=== PATIENT | male | born 2000 | race Caucasian/White ===

== ENCOUNTER 2020-08-31 18:48 | Emergency (ER) | payer BC ==
--- NOTE | 2020-08-31 19:11 | EDM.PDOC ---
ED HPI GENERAL MEDICAL PROBLEM - General Chief Complaint: Gastrointestinal Problem Stated Complaint: CONSTIPATION Time Seen by Provider: 08/31/20 19:04 Source of Information: Reports: Patient History Limitations: Reports: No Limitations - History of Present Illness INITIAL COMMENTS - FREE TEXT/NARRATIVE: 20-year-old male presents to the ED with concerns of not having a bowel movement for the last 6 days. He states he is in no discomfort. He has no rectal pressure discomfort no rectal pain. He has not taken any medications that would have slow down his bowel [id number] or prescribed by a doctor. Denies any problems with hemorrhoids or rectal bleeding. He does have a small umbilical hernia which she was somewhat concerned about may be causing some of his problem s. He states he can eat and does not have much in the way of abdominal cramping pain. There is been no nausea or vomiting. No fever or chills. No other signs of illness. Onset: Gradual Onset Date: 08/26/20 (Ports no good bowel movement for 6 days.) Duration: Day(s):, Constant Location: Reports: Abdomen (Mild diffuse abdominal discomfort. No severe cramps. Reports no bowel movement for 6 days.) Quality: Reports: Other Severity: Mild (Occasional mild cramping abdominal pain) Improves with: Reports: None Worsens with: Reports: None Context: Denies: Activity, Exercise, Lifting, Sick Contact, Trauma, Other Associated Symptoms: Denies: No Other Symptoms, Confusion, Chest Pain, Cough, cough w sputum, Diaphoresis, Fever/Chills, Headaches, Loss of Appetite, Malaise, Nausea/Vomiting, Rash, Seizure, Shortness of Breath, Syncope, Weakness Treatments INTERVENTIONAL PHYSIATRIST: Reports: Other (see below) - Related Data Allergies Allergy/AdvReac Type Severity Reaction Status Date / Time No Known Allergies Allergy Verified 08/31/20 19:01 Home Meds: Home Meds . [No Known Home Meds] 08/31/20 [History] Past Medical History - Past Health History Medical/Surgical History: Denies Medical/Surgical History Gastrointestinal History: Reports: Other (See Below) Other Gastrointestinal History: umbilicial hernia Social & Family History - Family History Family Medical History: No Pertinent Family History ED ROS GENERAL - Review of Systems Review Of Systems: See Below Constitutional: Reports: No Symptoms HEENT: Reports: No Symptoms Respiratory: Reports: No Symptoms Cardiovascular: Reports: No Symptoms Endocrine: Reports: No Symptoms GI/Abdominal: Reports: Constipation, Other (Does have a small infraumbilical hernia that does not bother him and he discovered about 6 weeks ago.) : Reports: No Symptoms Musculoskeletal: Reports: No Symptoms Skin: Reports: No Symptoms Neurological: Reports: No Symptoms Psychiatric: Reports: No Symptoms Hematologic/Lymphatic: Reports: No Symptoms Immunologic: Reports: No Symptoms ED EXAM, GI/ABD - Physical Exam Exam: See Below Exam Limited By: No Limitations General Appearance: Alert, WD/WN, No Apparent Distress, Other (Temperature is 36.7. Heart rate 106 in sinus respiratory is 14 with O2 sats of 100% room air BP 1 3387) Eyes: Bilateral: Normal Appearance Throat/Mouth: Normal Inspection, Normal Lips, Normal Teeth, Normal Oropharynx, Other (Tongue is moist.) Head: Atraumatic, Normocephalic Neck: Normal Inspection, Supple, Non-Tender, Full Range of Motion. No: Lymphadenopathy (L), Lymphadenopathy (R), Thyromegaly Respiratory/Chest: No Respiratory Distress, Lungs Clear, Normal Breath Sounds, No Accessory Muscle Use, Chest Non-Tender Cardiovascular: Normal Peripheral Pulses, Regular Rate, Rhythm, No Edema, No Gallop, No Murmur, No Rub GI/Abdominal Exam: Normal Bowel Sounds, Soft, Non-Tender, No Mass, Other (Does have a small umbilical hernia inferior portion which is easily reducible and nontender) Back Exam: Normal Inspection, Full Range of Motion. No: CVA Tenderness (L), CVA Tenderness (R) Extremities: Normal Inspection, Normal Range of Motion, Non-Tender, No Pedal Edema Neurological: Alert, Oriented, CN II-XII Intact, Normal Cognition Psychiatric: Normal Affect, Normal Mood Skin Exam: Warm, Dry, Intact, No Rash Course - Vital Signs Last Recorded V/S: Last Vital Signs Temp 36.7 C 08/31/20 18:58 Pulse 106 H 08/31/20 18:58 Resp 14 08/31/20 18:58 BP 133/87 08/31/20 18:58 Pulse Ox 100 08/31/20 18:58 - Orders/Labs/Meds Orders: Active Orders 24 hr Category Date Time Status Abdomen 1V Flat [CR] Stat Exams 08/31/20 19:05 Taken Meds: Medications Discontinued Medications Generic Name Dose Route Start Last Admin Trade Name Devaughn PRN Reason Stop Dose Admin Magnesium Citrate 296 ml 08/31/20 19:42 Citrate Of Magnesia PO 08/31/20 19:43 ONETIME ONE - Radiology Interpretation Free Text/Narrative:: 20-year-old male presents to the ED comes with concerns of no bowel movement for the last 6 days. In spite of this he has a good appetite he denies any abdominal pain or cramping on a consistent basis. No rectal pressure discomfort no rectal bleeding. On no meds that would slow his bowel down. Clinically I do not find any significant masses in the abdomen on exam. Plan KUB will be done. - Re-Assessments/Exams Free Text/Narrative Re-Assessment/Exam: 08/31/20 19:40: KUB reveals increased stool throughout most of the colon compatible with constipation. There is no sign of bowel obstruction. Plan he will be placed given Citroma 10 ounces by mouth with 6 ounces of juice of choice to provide bowel cleanse. Follow-up only if further problems occur. He is quite concerned about his umbilical hernia as it is bothering him intermittently with lifting pushing and pulling. Advised to follow-up with physician at home as he will be returning to [place] within the next 4 days to consider umbilical hernia [place] over the vacation. Departure - Departure Time of Disposition: 19:43 Disposition: Home, Self-Care 01 Condition: Fair Clinical Impression: Constipation by delayed colonic transit, Umbilical hernia without obstruction or gangrene - Discharge Information *PRESCRIPTION DRUG MONITORING PROGRAM REVIEWED*: Not Applicable *COPY OF PRESCRIPTION DRUG MONITORING REPORT IN PATIENT CHIN: Not Applicable Instructions: Constipation, Adult Referrals: PCP,None [Primary Care Provider] - Forms: ED Department Discharge Additional Instructions: X-ray of the abdomen does confirm significant constipation with stool throughout most of the large bowel or colon. The colon is 4-1/2 feet in length and you have approximately 3-1/2 feet of stool within this. This has occurred gradually over the last 10 to 14 days. Sometimes your body will do this if it has to steal extra fluids from not drinking enough it will form up the stool prematurely in the right side of the colon and cause constipation. Treatment is medication magnesium citrate or Citroma. Take 10 ounces of this medication or the whole bottle mixed with 7 ounces of juice of choice by mouth once. Suggest drinking a large glass of water or other fluid over the next hour to act as a bit of a flush. Bowels will usually begin to work in 1 to 2 hours and your bowels on average work 4 or 5 times often ending some degree of diarrhea. This should provide complete bowel cleanse. May continue to eat and drink as per normal. As far as the umbilical hernia goes it is considered small and mild at this time. However if it continues to bother you with lifting pushing pulling etc. it could be surgically repaired. Sepsis Event Note (ED) - Evaluation Sepsis Screening Result: No Definite Risk - Focused Exam Vital Signs: Vital Signs Temp Pulse Resp BP Pulse Ox 08/31/20 18:58 36.7 C 106 H 14 133/87 100 - My Orders Last 24 Hours: My Active Orders 08/31/20 19:05 Abdomen 1V Flat [CR] Stat - Assessment/Plan Last 24 Hours: My Active Orders 08/31/20 19:05 Abdomen 1V Flat [CR] Stat
[2020-08-31] MEDS ORDERED: Magnesium Citrate Solution 296 ML Bottle PO ONE (19:42)
--- NOTE | 2020-09-01 09:30 | CR ---
Abdomen: Supine view of the abdomen was obtained. Comparison: No previous study. Mild increased stool is seen throughout the colon. Bowel gas pattern is otherwise unremarkable. Multiple calcifications are seen within the pelvis most likely representing phleboliths. Bony structures appear within normal limits for the patient's age. Impression: 1. Slight increased stool throughout the colon. 2. Phleboliths within the pelvis. Diagnostic code #2 I agree with preliminary report from [facility], finalized on 08/31/20, 9:01 PM [employer]ENS[employer]
== END 2020-08-31 20:02 | disposition home or self-care (01) ==
LOC: JD.ED 18:48
DX: K59.01 Slow transit constipation (principal); K42.9 Umbilical hernia without obstruction or gangrene
CPT/HCPCS: 74018; 99283; A9270